=== PATIENT | female | born 1960 | race Caucasian/White ===

== ENCOUNTER 2020-06-18 08:44 | Outpatient (CLI) | payer OTHER, SELFPAY ==
--- NOTE | 2020-06-18 08:48 | ECG_ITS ---
Measurements Intervals [place] Rate: 73 P: -21 MT: 104 QRS: -35 QRSD: 85 T: 6 QT: 350 QTc: 387 Interpretive Statements SINUS RHYTHM WITH SHORT MT INTERVAL LEFT AXIS DEVIATION BORDERLINE T WAVE ABNORMALITY- INFERIOR LEADS BORDERLINE ECG Electronically Signed On 06-18-2020 9:24:25 CDT by Chuy Hurtado D.O.
[2020-06-18 09:21] LABS: Anion Gap 5 mmol/L (8-16); Blood Urea Nitrogen 28 mg/dL (7-17); Calcium 8.8 mg/dL (8.4-10.2); Carbon Dioxide 29 mmol/L (22-30); Chloride 104 mmol/L (98-107); Estimated Glomerular Filt Rate 57; Glucose 137 mg/dL (65-105); Sodium 138 mmol/L (137-145)
[2020-06-18 09:31] LABS: Hemoglobin A1C 7.9 % (<5.7)
== END 2020-06-18 08:45 | disposition home or self-care (01) ==
PROVIDERS: Anesthesiology; PCP Family Medicine Sports Medicine; Visit Provider Surgery Plastic and Reconstructive Surgery
DX: Z01.818 Encounter for other preprocedural examination (principal); E11.9 Type 2 diabetes mellitus without complications
CPT/HCPCS: 36415; 80048; 83036; 93005

== ENCOUNTER 2020-06-26 01:47 | Outpatient (CLI) | payer OTHER, SELFPAY ==
[2020-06-26 19:20] LABS: SARS-CoV-2 RNA PCR Negative
== END 2020-06-26 01:48 | disposition home or self-care (01) ==
LOC: ANHCOVIDDT 01:47
PROVIDERS: PCP Family Medicine Sports Medicine; Visit Provider Surgery Plastic and Reconstructive Surgery
DX: Z01.812 Encounter for preprocedural laboratory examination (principal); Z20.828 Contact with and (suspected) exposure to other viral communicable diseases
CPT/HCPCS: 87635; C9803; U0003

== ENCOUNTER 2020-06-28 00:48 | Day surgery (SDC) | payer OTHER, SELFPAY ==
[2020-06-17 11:09] VITALS: BMI 28.5
[2020-06-28] VITALS (9 sets, daily range): BP systolic 100–117; BP diastolic 45–72; PULSE 73–88; RESP 12–19; TEMP 36.4–37; O2SAT 99–100
[2020-06-28 09:10] LABS: Urine Cotinine NEGATIVE
[2020-06-28] MEDS: LACTATED RINGERS 1,000 ML 30 ML IV CONT ×2 (09:16→14:16)
[2020-06-28 09:21] LABS: Glucose Point of Care 127 (65-105)
--- NOTE | 2020-06-28 09:26 | WPDANESEPPF ---
Anes - Initial Pre Proc Eval Procedure: Operation Date: 06/28/20 10:30 Proposed Procedures p Bilateral Breast Reduction - Stanford Villanueva MD Date/Time: 06/28/20 09:26 Surgeon: Stanford Villanueva MD Pre Op Diagnosis: macromastia Patient Data Age: 60 Gender: F Height: 5 ft 2 in Weight: 70.76 kg Allergies Allergy/AdvReac Type Severity Reaction Status Date / Time No Known Allergies Allergy Verified 06/19/20 08:26 Home Medications Medication Instructions Recorded Confirmed Type calcium carbonate 500 mg calcium 500 mg PO DAILY 03/27/20 06/28/20 History (1,250 mg) tablet lisinopril 20 mg tablet 20 mg PO DAILY 03/27/20 06/28/20 History metformin 1,000 mg tablet 1,000 mg PO DAILY 03/27/20 06/28/20 History multivitamin-ferrous 1 tablet PO DAILY 03/27/20 06/28/20 History fumarate-folic acid 18 mg-400 mcg tablet omeprazole 40 mg capsule,delayed 40 mg PO DAILY 03/27/20 06/28/20 History release venlafaxine 37.5 mg tablet 37.5 mg PO DAILY 03/27/20 06/28/20 History semaglutide [Rybelsus] 3 mg PO DAILY 06/17/20 06/28/20 History docusate sodium 100 mg capsule 100 mg PO BID #14 cap 06/19/20 Rx hydrocodone 5 mg-acetaminophen 325 1 tablet PO Q6H PRN #15 tablet 06/19/20 06/19/20 Rx mg tablet ondansetron HCl 4 mg tablet 4 mg PO Q6H PRN #30 tablet 06/19/20 Rx Laboratory Tests 06/28/20 06/28/20 08:50 09:18 POC Capillary Glucose 127 mg/dl H mg/dl (65-105) Cotinine Negative Patient hx anesthesia problems: none Family hx anesthesia problems: none PMFSH Past Medical History Medical History Acid reflux Diabetes Hypertension Surgical History Surgical History History of tubal ligation Social History Social History Smoking status: Never smoker Alcohol intake: current Substance use: never Spiritual care concerns: No Anes - Eval Final PreProcedure Day of Procedure 06/28/20 09:26 Patient weight: overweight Heart: regular rate and rhythm Lungs: clear to auscultation Airway: Mallampati scale class II Neurological: alert and oriented Last oral intake: >/= 8 hours ASA classification: III Emergent: no Anesthetic plan: proceed Anesthesia type and monitoring: general LMA and standard monitoring Informed Consent: The patient's anesthetic plan and its attendant risks and benefits were discussed with the patient/family/POA. Questions were solicited and answers provided to the satisfaction of the patient/family/POA.
[2020-06-28] MEDS: SCOPOLAMINE 1.5 MG PATCH TRANSDERM (09:46)
--- NOTE | 2020-06-28 10:49 | WPDHPUPDATE1 ---
History and Physical Update Update Date/Time: 06/28/20 10:49 History and Physical has been reviewed, including an updated exam of the patient. There are NO changes in the patient's condition. Risks, benefits, and alternatives have been discussed and questions answered. Patient agrees to proceed with procedure.
--- NOTE | 2020-06-28 11:15 | P.OP_ITS ---
Procedure Note - Detailed Date of procedure: 06/28/20 Pre-op diagnosis: macromastia Post-op diagnosis: same Procedure performed: Bilateral Reduction Mammaplasty Description of procedure: She is here today for bilateral breast reduction. Previously and again today the risks, benefits, alternatives were discussed in extensive detail. I wanted her to be very realistic about the risks involved as well as expectations. Originally we discussed free nipple graft however after drawing out the breast reduction and discussing her options she would like proceed with pedicle nipple-areolar complex. She understands there is still risk of loss of the nipple-areolar complex with this among other risks of pedicled NAC. We discussed aftercare and what to monitor for. She understands we can never guarantee final breast size and there will always be asymmetry. I was very upfront and honest about the risks of sensation change and even nipple loss (). Made sure answered all of her questions to her satisfaction today and consent was obtained. She was marked in the preoperative holding area with their verification. The patient was taken to the operating room placed supine on the operating table. Anesthesia was provided by anesthesiology. She was prepped and draped in a standard sterile fashion. A surgical time-out was taken. Stab incisions were made and I tumessed with a tumescent solution. I marked out the nipple-areolar complex at 42 mm. I then de-epithelialized the pedicle. The pedicle was well left well more than 2 cm in thickness. I then removed the inferior portion of the breast as well as the central keel to get shape based on preoperative planning. At this point copiously irrigated with saline solution and verified a strict hemostasis. I reapproximated the pillars using a 2-0 PDS as well as along the I MF. I tailor tacked the breast into place with nghia. She was placed in a sitting position. I verified the nipple-areolar complex position based on preoperative markings, intraoperative measurements, and observation which were in full agreement. This nipple-areolar complex was marked at 42 mm in size. I then placed supine and de-epithelialized this. Nipple-areolar complex was inset with 3-0 Monocryl. I closed the vertical incision with 3-0 Monocryl in the IMF with 3-0 stratafix. Then everything was closed using a running subcuticular 4-0 Monocryl followed by Steri-Strips. A dressing was placed followed by surgical bra. Patient was awoke and taken to PACU without difficulty. All instrument sponge counts were correct at the end of the case. Anesthesia: GLMA Surgeon: Stanford Villanueva MD Estimated blood loss (mL): 20 Drains: No Packing: No Pathology: yes (Bilateral breast tissue) Complications: No immediate complications Condition: stable Disposition: PACU Findings: Inverted T, superior medial pedicle. Breast tissue removed: Right: 1101.4 grams Left: 1046.4 grams
[2020-06-28] MEDS: ceFAZolin 2 GM/D5W 50 ML 2 GM/50 ML BAG IVPB (11:33)
--- NOTE | 2020-06-28 13:59 | SUR.OPER ---
EBL:50cc
[2020-06-28 15:33] LABS: Glucose Point of Care 202 (65-105)
[2020-06-28 16:43] LABS: Glucose Point of Care 241 (65-105)
== END 2020-06-28 17:05 | disposition home or self-care (01) ==
PROVIDERS: PCP Family Medicine Sports Medicine; Visit Provider Surgery Plastic and Reconstructive Surgery
PROC: 0HBV0ZZ Excision of Bilateral Breast, Open Approach (ICD-10-PCS; CPT 19318; principal; 2020-06-28 10:30)
DX: N62 Hypertrophy of breast (principal); I10 Essential (primary) hypertension; E11.9 Type 2 diabetes mellitus without complications; K21.9 Gastro-esophageal reflux disease without esophagitis; Z79.84 Long term (current) use of oral hypoglycemic drugs; Z79.899 Other long term (current) drug therapy
CPT/HCPCS: 19318; 80307; 88305; A9270; J0171; J0690; J2250; J2704; J3010; J7120